=== PATIENT | male | born 1970 | race Caucasian/White ===

== ENCOUNTER → 2020-05-20 | Outpatient (CLI) | payer BC, MEDICARE ==
--- NOTE | 2020-05-21 04:08 | MR ---
EXAMINATION TYPE: MR cervical spine wo/w con DATE OF EXAM: 05/20/2020 COMPARISON: None HISTORY: Headaches, pain into rt arm, hx of surgery CONTRAST: Standard multiplanar, multisequence MRI departmental protocol utilizing 12.5 mL intravenous Gadavist gadolinium contrast. Exam is severely limited by metal artifact due to surgery at the mid and lower cervical spine. As bes t as one can tell the vertebra have normal alignment. Disc spaces from C4 to C7 are mostly obscured b y the metal artifact. I see no evidence of a paraspinal mass. The posterior screws obscure the bone d etail posteriorly. The brainstem is intact. Visualized spinal cord has normal signal pattern. There i s no edema. I do not see evidence of spinal stenosis. Contrast images show no evidence of pathologic enhancement. IMPRESSION: Limited exam. No evidence of spinal stenosis. No fracture seen. If there is persistent clinical indic ation a CT scan or CT myelogram would be helpful for further evaluation.
== END | disposition home or self-care (01) ==
LOC: RADMRIMAIN 06:45
PROVIDERS: ATTEND Nurse Practitioner
DX: M54.12 Radiculopathy, cervical region (principal)
CPT/HCPCS: 72156; A9585

== ENCOUNTER → 2020-08-07 | Outpatient (CLI) | payer MEDICARE ==
--- NOTE | 2020-08-07 10:37 | MR ---
EXAMINATION TYPE: MR shoulder RT wo con DATE OF EXAM: 08/07/2020 10:28 AM COMPARISON: NONE HISTORY: Right shoulder pain and pain when arm raised over head for 6 months. TECHNIQUE: Multiplanar multispin echo imaging of the right shoulder was performed. FINDINGS: Rotator cuff : Mild heterogeneity of the supraspinatus tendon compatible with chronic tendinopathy. T here is no complete or bursal/articular sided partial rotator cuff tear. The subscapularis constituen t of the rotator cuff is intact. Bursa: No bursal effusion or thickening is seen. Musculature: There is no muscular tear, contusion, or atrophy. Acromioclavicular joint : There are moderate degenerative changes of the acromioclavicular joint. Frankel bacromial spur results in impingement. Osseous structures : There are no fractures or regions of abnormal bone marrow signal intensity. Long biceps tendon : The biceps tendon is normally situated within the bicipital groove. No complete or partial biceps tendon tear is present. Glenohumeral Joint fluid : There is no glenohumeral joint effusion. Cartilage and Bone : No focal hyaline cartilage defects are noted. No Hill-Sachs, reverse Hill-Sachs, or bony Bankart lesions are seen. Labrum : There are no SLAP or soft tissue Bankart lesions. No paralabral cysts are seen. OTHER FINDINGS : none IMPRESSION: 1. Mild heterogeneity of the supraspinatus tendon compatible with chronic tendinopathy. Subacromial s pur results in impingement.
== END | disposition home or self-care (01) ==
LOC: RADMRIMAIN 09:53
PROVIDERS: ATTEND Nurse Practitioner
DX: M75.41 Impingement syndrome of right shoulder (principal)